=== PATIENT | female | born 1980 | race Asian ===

== ENCOUNTER 2019-07-23 12:34 | Outpatient (CLI) | payer BC ==
--- NOTE | 2019-07-23 13:03 | ULT ---
US Renal Bilateral STANDARD History: Renal atrophy Comparison: None. Findings: Real-time grayscale and color evaluation of the kidneys and urinary bladder was performed. Right kidney measures 12.6 x 6.2 x 5 cm. No left kidney is visualized. Small simple cyst inferior mk e right kidney which is endophytic measuring up to 1.6 cm. Urinary bladder volume is 970 mL. Impression: Simple small cyst superior pole right kidney without evidence of obstructive uropathy. Ab sent left kidney.
== END 2019-07-23 12:35 | disposition home or self-care (01) ==
LOC: BICULT 12:34
PROVIDERS: ATTEND Family Medicine
DX: N26.1 Atrophy of kidney (terminal) (principal); N28.1 Cyst of kidney, acquired; Z90.5 Acquired absence of kidney
CPT/HCPCS: 36415; 76770; 80053; 80061; 83036; 84443; 85025

== ENCOUNTER 2021-01-02 08:20 | Outpatient (CLI) | payer BC | END 2021-01-02 08:21 | disposition home or self-care (01) | LOC: BICRAD 08:20 | PROVIDERS: ATTEND Internal Medicine Critical Care Medicine | DX: R06.00 Dyspnea, unspecified (principal) | CPT/HCPCS: 71046 ==

== ENCOUNTER 2021-05-25 14:48 | Outpatient (CLI) | payer BC ==
[2021-05-26 00:48] LABS: SARS-CoV-2 PCR by NAA Not Detected (NotDetected)
== END 2021-05-25 14:49 | disposition home or self-care (01) ==
LOC: LABBT 14:48 → EDSEX 14:48 → LABBT 14:49
PROVIDERS: ATTEND Internal Medicine Gastroenterology
DX: Z01.812 Encounter for preprocedural laboratory examination (principal); K21.00 Gastro-esophageal reflux disease with esophagitis, without bleeding; Z20.822 Contact with and (suspected) exposure to COVID-19
CPT/HCPCS: U0003; U0005